=== PATIENT | female | born 1945 | race Caucasian/White ===

== ENCOUNTER 2024-02-18 11:28 | Emergency (ER) | payer OTHER, SELFPAY ==
[2024-02-18 11:39] VITALS: BP 196/77; BMI 23.5
[2024-02-18 12:00] VITALS: BP 197/71
--- NOTE | 2024-02-18 12:00 | EDRN ---
Pt placed on bedpan after saturated depends removed from pt.
[2024-02-18 13:05] VITALS: BP 184/71
--- NOTE | 2024-02-18 13:24 | EDRN ---
Dr. Ibarra in room w/pt and spouse and daughter.
--- NOTE | 2024-02-18 13:54 | ED.GENMED ---
History of Present Illness
General
Chief Complaint: Fall
Source: patient and family
Exam Limitations: none
Time Seen by Provider: 02/18/24 12:00
Nursing documentation reviewed up to this point in time: agreed with
History of Present Illness
History of Present Illness:
78-year-old female on Eliquis slip and fall tried hanging up some cloths hit the back of her head on the dresser and fell has pain on the dorsum of her right wrist
No headache no nausea vomiting neck pain, unsure of her last tetanus pain in her wrist is moderate
Past History
Past History
ED Past Medical History: Arrthythmia (Paroxysmal atrial fibrillation), Asthma, CAD, HTN, Hypercholesterolemia and Valvular disease (Aortic valvular disease); Negative CHF
ED Past Surgical History: Cholecystectomy and Gynecological (Hysterectomy)
Social History
Tobacco: Non-smoker
Alcohol: Occasional
Drug: None
Personal:
Living: with family
Employment: Retired
Family History
Family History: Other (Noncontributory)
Review of Systems
Review of Systems
All Other Systems: Not applicable
Constitutional: Denies fever
EENT: Reports no symptoms
Respiratory: Reports no symptoms; Denies cough or trouble breathing
Cardiac: Denies chest pain or palpitations
: Reports no symptoms
Musculoskeletal: Reports joint pain
Skin: Reports no symptoms
Neurological: Reports no symptoms
Phy Exam
Physical Exam
Physical Exam:
Physical Exam
General: 78-year-old female nontoxic
Neck: No tongue bite no posterior neck pain 0.5 cm abrasion to right posterior scalp
Heart: Regular
Lungs: no acute respiratory distress. clear bilaterally
Abdomen: Nontender
Neuro: alert and oriented. no focal neurological deficits
Skin: no rash
Psychiatric: cooperative
Extremities: Ecchymosis on the dorsum of the right wrist strong radial pulse
Course
Orders/Labs/Results
Orders:
Orders
02/18/24 11:36
CT Cervical Spine W/o Iv Contr Urgent
Comment:
Reason For Exam: fall
CT Head W/o Iv Contrast Urgent
Comment:
Reason For Exam: fall
Cardiac Monitoring- Treatment ONCE
02/18/24 12:00
Wrist, Right 3 Views [CR Wrist - Right Min 3 Views] Urgent
Comment:
Reason For Exam: fall
02/18/24 13:27
Ice Pack-Treatment DIRECTED
Location: wrist
Buzz Wrap Right-Treatment ONCE
Acetaminophen [Tylenol] 650 mg PO NOW STA
Tetanus/Diphth/Acelpertussis [Adacel] 0.5 ml IM .ONCE ONE
Vital Signs
Initial and Last Documented VS:
Initial Vital Signs
Temp Pulse Resp BP Pulse Ox
98.2 F 55 16 196/77 96
02/18/24 11:39 02/18/24 11:39 02/18/24 11:39 02/18/24 11:39 02/18/24 11:39
Last Documented Vital Signs
Temp Pulse Resp BP Pulse Ox
98.2 F 55 24 184/71 96
02/18/24 11:39 02/18/24 13:15 02/18/24 13:15 02/18/24 13:05 02/18/24 13:15
MDM/Problems Addressed
Differential Diagnosis Includes:
Slip and fall subdural epidural skull fracture wrist fracture abrasion contusion laceration
MDM/Problems Addressed:
Fall wrist pain head trauma
Chronic conditions affecting care: Arrhythmia
Acute Exacerbation and/or Progression of Chronic Illness: Arrhythmia
*Radiology
Radiology exam reviewed: radiology read reviewed
*Pulse Oximetry
Patient hypoxic: no
*Critical Care Note
Total Time (30-74mins, 75-104mins- exclusive of procedures): Not Applicable
Update Note
Update Note:
Update, CT reports noted, x-ray noted formal report noted will mobilize have her follow-up with orthopedics of note patient does not want any sutures to her scalp, will provide local wound care bulky dressing
ED Attending Note
-
Portions of this chart may have been created with voice recognition software.� Occasional wrong word or��sound alike� substitutions may have occurred due to the inherent limitations of voice recognition software.
Discharge Plan
Departure
Patient Disposition: Home (Routine Discharge)
Date of Disposition: 02/18/24
Time of Disposition: 13:57
Patient with high blood pressure during this ER visit?: No
Condition: Good
Covid-19: Not Applicable
Discharge Problem:
Injury of wrist, Head injury
Instructions: Preventing falls in adults, Skin Abrasions (DC), Wound Care (DC), Concussion, Adult (DC), Contusion
Prescriptions:
No Action
multivitamin with folic acid [Tab-A-Denisha] 1 TABLET tablet
1 tab PO DAILY Qty: 0
Eliquis 5 MG tablet
5 mg PO BID Qty: 0
acetaminophen [Tylenol Extra Strength] 500 MG tablet
1,000 mg PO TIDPRN PRN (Reason: mild pain)
furosemide 40 mg Tablet
40 mg PO Q48H
aspirin 81 mg Tablet,Delayed Release (Dr/Ec)
81 mg PO DAILY@1200
calcium carbonate 600 mg calcium (1,500 mg) Tablet
600 mg PO DAILY@1200
losartan 100 mg Tablet
100 mg PO DAILY@1200
rosuvastatin 40 mg tablet
40 mg PO DAILY@1200
budesonide-formoterol 160-4.5 mcg/actuation Hfa Aerosol Inhaler
2 puff INHALATION R DAILY
metoprolol succinate 50 mg Tablet Extended Release 24 Hr
75 mg PO BID 30 Days Qty: 90 0RF
zolpidem 10 mg Tablet
5 mg PO HS 30 Days Qty: 15 0RF
Referrals:
Jamaal Jeong, [Family Provider] - Next open appointment
Lloyd Villanueva MD [Active] - Follow up in 5-7 days
Activity Restrictions/Additional Instructions:
Rest, ice there is that hurt, Tylenol as needed for pain,
Use Buzz wrap, follow-up with orthopedics Dr. Villanueva or his associates
No Eliquis this evening, you can resume it tomorrow return to the ER if headaches nausea vomiting weakness seizures or any other concerns as this could be signs of delayed bleeding
Interventions
Interventions:
*Risk Screen - Suicide Last Done: 02/18/24 11:35
*General Assessment Last Done: 02/18/24 11:39
*Neglect/Abuse Screening Last Done: 02/18/24 11:35
ED- Fall Risk Assessment Last Done: 02/18/24 11:35
*ED COVID-19 Vaccine History Last Done: 02/18/24 11:46
ED-Musculoskeletal Assessment Last Done: 02/18/24 12:00
ED- Neurological Assessment Last Done: 02/18/24 12:00
ED-Skin Assessment Last Done: 02/18/24 12:00
Discharge Date and Time
Print Language: CHINESE
[2024-02-18] MEDS: TYLENOL 650 MG PO (14:19)
[2024-02-18] MEDS: ADACEL 0.5 ML IM (14:20)
[2024-02-18 14:25] VITALS: BP 182/67
--- NOTE | 2024-02-18 14:30 | EDRN ---
Per Dr. Ibarra pt declined any sutures to her head. Wound was cleansed extensively on arrival to ER w/ soap and water w/ rinse w/ saline. At this time area was again extensively washed as hair still matted w/ blood. Pt's head abrasion was then
dressed w/ double antibiotic ointment, ABD, and 4x4 gauze squares and held in place w/ kerlix. Pt's R wrist was splinted w/ a volar splint and sling placed on pt.
== END 2024-02-18 15:10 | disposition home or self-care (01) ==
LOC: EMR 11:28
PROVIDERS: EMERGENCY PHYSICIAN Emergency Medicine; FAMILY PHYSICIAN Family Medicine
DX: S09.90XA Unspecified injury of head, initial encounter (principal); S69.91XA Unspecified injury of right wrist, hand and finger(s), initial encounter; S00.01XA Abrasion of scalp, initial encounter; S60.211A Contusion of right wrist, initial encounter; W01.190A Fall on same level from slipping, tripping and stumbling with subsequent striking against furniture, initial encounter; Y93.89 Activity, other specified; Z23 Encounter for immunization; I48.0 Paroxysmal atrial fibrillation; I25.10 Atherosclerotic heart disease of native coronary artery without angina pectoris; I10 Essential (primary) hypertension; J45.909 Unspecified asthma, uncomplicated; E78.00 Pure hypercholesterolemia, unspecified; Z95.2 Presence of prosthetic heart valve; Z90.49 Acquired absence of other specified parts of digestive tract; Z79.01 Long term (current) use of anticoagulants
CPT/HCPCS: 99284; 90471; 29125; 70450; 72125; 73110; 90715

== ENCOUNTER 2024-04-15 22:59 | Observation (INO) | payer OTHER, SELFPAY ==
[2024-04-15 18:12] VITALS: BP 145/81
[2024-04-15 20:05] VITALS: BP 195/74
--- NOTE | 2024-04-15 20:23 | ED.MUSCINJ ---
HPI-Injury
General
Chief Complaint: Musculo-Skeletal Complaint
Source: patient
Exam Limitations: none
Time Seen by Provider: 04/15/24 20:02
History of Present Illness-Injury
Initial Injury comments:
78-year-old female on Eliquis and metoprolol presents for evaluation of right ankle pain and swelling starting last evening. 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 She did not fall and hit her head. She has been unable to
ambulate all today secondary to pain. She was incontinent of urine and she smelled of urine on arrival. She typically uses a walker to ambulate. She lives with her
Past History
Past History
ED Past Medical History: Arrthythmia (Paroxysmal atrial fibrillation), Asthma, CAD, HTN, Hypercholesterolemia and Valvular disease (Aortic valvular disease); Negative CHF
ED Past Surgical History: Cholecystectomy and Gynecological (Hysterectomy)
Social History
Tobacco: Non-smoker
Alcohol: Occasional
Drug: None
Personal:
Living: with family
Employment: Retired
Family History
Family History: Other (Noncontributory)
Phy Exam
Physical Exam
Physical Exam:
General: Well-appearing female no acute respiratory distress
HEENT: Normocephalic atraumatic
Heart: Regular rate and rhythm no murmurs
Lungs: Clear no wheeze
Abdomen is soft nontender nondistended
Musculoskeletal exam: Right ankle swollen ecchymotic and tender mainly over the lateral aspect of the ankle. No deformity. The knee is nontender. She has good range of motion to the ankle.
Vascular: 2+ DP pulse right foot
Injury Course
Orders/Labs/Results
Orders:
Orders
04/15/24 18:22
CR Ankle - Right Min 3 Views * Urgent
Comment:
Reason For Exam: injury/pain/swelling
04/15/24 20:22
Ortho Boot Right- Treatment ONCE
Short or tall?: Tall
04/15/24 21:17
Urinalysis Reflex To Culture Urgent
04/15/24 21:31
Basic Metabolic Panel Urgent
Complete Blood Count/With Diff Urgent
04/15/24 22:15
Case Management Consult ONCE
Case Management Consult: Discharge Planning
PT Consult [Pt Eval And Treat] Urgent
Activity Level: Ambulate
Abnormal Lab Results
04/15/24
21:31
WBC 10.9 H 10^3/uL
(4.8-10.8)
RBC 4.04 L 10^6/uL
(4.20-5.40)
Hct 36.0 L %
(37.0-47.0)
Abs Immat Gran (auto) 0.1 H 10^3/uL
(0-0.05)
Absolute Neuts (auto) 8.5 H 10^3/uL
(1.4-6.5)
Absolute Monos (auto) 1.1 H 10^3/uL
(0.1-0.6)
Neutrophils % 77.4 H %
(42.2-75.2)
Lymphocytes % 10.9 L %
(20.5-51.1)
Monocytes % 10.1 H %
(1.7-9.3)
BUN 18 H mg/dl
(7-17)
Creatinine 1.2 H mg/dL
(0.6-1.0)
Glucose 106 H mg/dl
(70-99)
04/15/24 21:31
04/15/24 21:31
MDM/Problems Addressed
Differential Diagnosis Includes:
Right ankle pain after twisting injury. Consider sprain versus fracture versus dislocation
No head strike or indication for imaging of her head at this time I personally visualized x-rays of the right ankle which demonstrated nondisplaced distal fibular fracture without any involvement in the mortise of the ankle. Patient was placed in
an orthopedic boot.
*Critical Care Note
Total Time (30-74mins, 75-104mins- exclusive of procedures): Not Applicable
Update Note
Update Note:
Patient was placed in a boot and we had walker in the room for her. Nurse attempted to help her ambulate. She required heavy assistance to get out of bed. She unsafely took several steps but was quite unsteady. Discussed this with family.
Family not comfortable with the care she requires at this point at home. Will keep in hospital for case management and physical therapy involvement
ED Attending Note
-
Portions of this chart may have been created with voice recognition software.� Occasional wrong word or��sound alike� substitutions may have occurred due to the inherent limitations of voice recognition software.
Discharge Plan
Departure
Patient Disposition: Admit
Date of Disposition: 04/15/24
Time of Disposition: 22:19
Admit to: Med/Surg
Presentation/result/management discussed w/ accepting MD/DO: Hospitalist
Discharge Problem:
Fracture of distal end of fibula
Prescriptions:
No Action
multivitamin with folic acid [Tab-A-Denisha] 1 TABLET tablet
1 tab PO DAILY Qty: 0
Eliquis 5 MG tablet
5 mg PO BID Qty: 0
acetaminophen [Tylenol Extra Strength] 500 MG tablet
1,000 mg PO TIDPRN PRN (Reason: mild pain)
furosemide 40 mg Tablet
40 mg PO Q48H
aspirin 81 mg Tablet,Delayed Release (Dr/Ec)
81 mg PO DAILY@1200
calcium carbonate 600 mg calcium (1,500 mg) Tablet
600 mg PO DAILY@1200
losartan 100 mg Tablet
100 mg PO DAILY@1200
rosuvastatin 40 mg tablet
40 mg PO DAILY@1200
budesonide-formoterol 160-4.5 mcg/actuation Hfa Aerosol Inhaler
2 puff INHALATION R DAILY
metoprolol succinate 50 mg Tablet Extended Release 24 Hr
75 mg PO BID 30 Days Qty: 90 0RF
zolpidem 10 mg Tablet
5 mg PO HS 30 Days Qty: 15 0RF
Referrals:
UNKNOWN - PT NOT,INTERVIE[facility] [Family Provider] -
Interventions
Interventions:
*Risk Screen - Suicide Last Done: 04/15/24 18:12
*Neglect/Abuse Screening Last Done: 04/15/24 18:12
*ED COVID-19 Vaccine History Last Done: 04/15/24 18:12
ED-Musculoskeletal Assessment Last Done: 04/15/24 20:28
Discharge Date and Time
Print Language: BULGARIAN
[2024-04-15 20:27] VITALS: BMI 23.2
[2024-04-15 21:39] LABS: % Basophils 0.6 % (0-2); % Eosinophils 0.5 % (0-6); % Immature Granulocytes 0.5 % (0-0.5); % Lymphocytes 10.9 % (20.5-51.1); % Monocytes 10.1 % (1.7-9.3); % Neutrophils 77.4 % (42.2-75.2); Absolute Basophils 0.1 10^3/uL (0-0.2); Absolute Eosinophils 0.1 10^3/uL (0-0.7); Absolute Immature Granulocytes 0.1 10^3/uL (0-0.05); Absolute Lymphocytes 1.2 10^3/uL (1.2-3.4); Absolute Monocytes 1.1 10^3/uL (0.1-0.6); Absolute Neutrophils 8.5 10^3/uL (1.4-6.5); Hemoglobin 12.2 g/dL (12.0-16.0); Mean Corp Hgb Conc. 33.9 g/dL (33.0-37.0); Mean Corpuscular Hgb 30.2 pg (27.0-31.0); Mean Corpuscular Volume 89.1 fL (81.0-99.0); Nucleated Red Blood Cells % 0 %; Platelet Count 250 10^3/uL (130-400); Red Blood Cell Count 4.04 10^6/uL (4.20-5.40); Red Cell Dist. Width 13.2 % (11.5-14.5); White Blood Cell Count 10.9 10^3/uL (4.8-10.8)
[2024-04-15 21:55] LABS: Blood Urea Nitrogen 18 mg/dl (7-17); Calcium 9.3 mg/dl (8.4-10.2); Carbon Dioxide 26 mmol/L (22-30); Chloride 103 mmol/L (98-107); Estimated Creatinine Clearance 31 ml/min; Glucose 106 mg/dl (70-99); Sodium 138 mmol/L (135-145); eGFR 46.05
[2024-04-15 23:00] VITALS: BP 167/58
--- NOTE | 2024-04-15 23:03 | HPS.HSE ---
Addendum entered and electronically signed by Nisreen Argueta MD 04/15/24 23:20:
#Urinary incontinence
-UA pending
Original Note:
Family Physician
-
Family Physician: [facility] UNKNOWN - PT NOT
Chief Complaint
-
right ankle pain
History of Present Illness
78-year-old female past medical history of paroxysmal atrial fibrillation on Eliquis, aortic valve replacement, CAD, asthma, hypertension, hypercholesteremia, presenting for right ankle pain and swelling which started last evening. She bent over to
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 She did not fall or hit her head. She was incontinent of urine smelled of urine on arrival. Uses walker to ambulate.
Medical History
Past Medical History
Past Medical History: Reports Other (paroxysmal atrial fibrillation on Eliquis, aortic valve replacement, CAD, asthma, hypertension, hypercholesteremia)
Past Surgical History: Reports Other (Cholecystectomy and Gynecological (Hysterectomy))
Social History
Tobacco: Non-smoker
Alcohol: None
Drug: None
Family History
Family History: Not pertinent
Allergies / Home Medications
Allergies reflects when Allergies were last updated in [employer].
Home Medications with original date entered in [employer]
Allergy/Medication List:
Allergies
Allergy/AdvReac Type Severity Reaction Status Date / Time
No Known Allergies Allergy Verified 04/15/24 18:20
Home Medications
apixaban 5 mg tablet (Eliquis) 5 mg PO BID Blood clot prevention/tx ##0 10/10/18
multivitamin with folic acid 400 mcg tablet (Tab-A-Denisha) 1 tab PO DAILY Supplement ##0 10/10/18
acetaminophen 500 mg tablet (Tylenol Extra Strength) 1,000 mg PO TIDPRN PRN mild pain 10/12/18
aspirin 81 mg tablet,delayed release 81 mg PO DAILY@1200 Blood clot prevention/tx 04/30/22
budesonide-formoterol HFA 160 mcg-4.5 mcg/actuation aerosol inhaler 2 puff inhalation R DAILY Lung/breathing issues 04/30/22
calcium carbonate 600 mg PO DAILY@1200 Supplement 04/30/22
furosemide 40 mg tablet 40 mg PO Q48H Fluid retention/Swelling 04/30/22
losartan 100 mg tablet 100 mg PO DAILY@1200 Blood pressure 04/30/22
rosuvastatin 40 mg tablet 40 mg PO DAILY@1200 High cholesterol 04/30/22
metoprolol succinate 50 mg tablet,extended release 24 hr 75 mg (1.5 x 50 mg) PO BID 30 days #90 tabs 05/02/22
zolpidem 10 mg tablet 5 mg (1/2 x 10 mg) PO HS 30 days #15 tabs 05/02/22
Review of Systems
-
History Source: Patient
A 12 point ROS was completed and negative except as noted: Yes
Constitutional: Reports No Symptoms
EENT: Reports No Symptoms
Respiratory: Reports No Symptoms
Cardiac: Reports No Symptoms
Abdomen/GI: Reports No Symptoms
: Reports No Symptoms
Musculoskeletal: Reports No Symptoms
Skin: Reports No Symptoms
Neurological: Reports No Symptoms
Endocrine: Reports No Symptoms
Hematologic/Lymphatic: Reports No Symptoms
Psych: Reports No Symptoms
Physical Exam
Vital Signs
Vital Signs
Temp Pulse Resp BP Pulse Ox
98.4 F 66 27 195/74 94
04/15/24 18:12 04/15/24 22:19 04/15/24 22:19 04/15/24 20:05 04/15/24 22:19
Physical Exam
General: Well Developed, Well Nourished and No Apparent Distress
HEENT: NormoCephalic, Moist mucous membranes and Atraumatic
Respiratory: Clear
Cardiac: S1/S2 and Regular Rhythm; No Murmur or Rub
GI: Soft, Non Tender, Non Distended and Normal Bowel Sounds; No Organomegaly
Rectal: Deferred by Provider
Musculoskeletal: No Clubbing, No Cyanosis and No Edema
Skin: No Rash
Neuro: Nonfocal/grossly intact
Laboratory Results
-
04/15/24 21:31
04/15/24 21:31
Laboratory Results
Total Bilirubin Cancelled 04/15/24 21:31
AST Cancelled 04/15/24 21:31
ALT Cancelled 04/15/24 21:31
Alkaline Phosphatase Cancelled 04/15/24 21:31
Data Reviewed
-
Lab Data: Labs Reviewed by me
Old Records: Reviewed
Impression/Plan
-
IMPRESSION:
PLAN:
# Right ankle fracture
-X-ray shows a Gonzalez type A ankle fracture, nondisplaced distal fibular fracture
-Orthopedic boot placed
-PT/OT, case management
-Tylenol, tramadol for pain
Paroxysmal atrial fibrillation
-Continue metoprolol
-Continue losartan
-Continue Eliquis
Aortic valve replacement
CAD
-Continue aspirin
Essential hypertension
Asthma
Hypercholesterolemia
-Continue statin
Lower extremity edema
-Continue Lasix
Full code
DVT prophylaxis�Eliquis
Regular diet
[2024-04-16] VITALS (7 sets, daily range): BP systolic 138–198; BP diastolic 54–84; PULSE 70
[2024-04-16] MEDS: LASIX 40 MG PO (01:15)
[2024-04-16] MEDS: TYLENOL 650 MG PO ×2 (01:21→09:51)
[2024-04-16 05:26] LABS: Hematocrit 32.9 % (37.0-47.0); Hemoglobin 11.3 g/dL (12.0-16.0); Mean Corp Hgb Conc. 34.3 g/dL (33.0-37.0); Mean Corpuscular Hgb 30.5 pg (27.0-31.0); Mean Corpuscular Volume 88.7 fL (81.0-99.0); Mean Platelet Volume 10.6 fL (7.4-10.4); Platelet Count 239 10^3/uL (130-400); Red Blood Cell Count 3.71 10^6/uL (4.20-5.40); Red Cell Dist. Width 13.2 % (11.5-14.5); White Blood Cell Count 11.2 10^3/uL (4.8-10.8)
[2024-04-16 05:52] LABS: Blood Urea Nitrogen 17 mg/dl (7-17); Calcium 9.2 mg/dl (8.4-10.2); Carbon Dioxide 25 mmol/L (22-30); Chloride 104 mmol/L (98-107); Estimated Creatinine Clearance 31 ml/min; Glucose 96 mg/dl (70-99); Potassium 3.3 mmol/L (3.5-5.1); Sodium 140 mmol/L (135-145); eGFR 46.05
--- NOTE | 2024-04-16 06:27 | PTCARENOTE ---
2350-pt rec'd from ER, aaox3 able to make needs known, right ortho boot (tall) in place, pt expressed pain 5/10, pt assessed and oriented to unit.
[2024-04-16] MEDS: SYMBICORT 160/4.5 MCG INHALER 2 PUFF INH (07:37)
[2024-04-16] MEDS: THERAGRAN 1 TABLET PO (09:51)
[2024-04-16] MEDS: ELIQUIS 5 MG PO (09:51)
[2024-04-16] MEDS: TOPROL XL 75 MG PO (09:52)
--- NOTE | 2024-04-16 10:02 | W.PN.HOSP.TC ---
Today's Communication/Plan
-
Await PT OT eval. Depending we will discharge home.
Assessment / Plan
Assessment / Plan
# Right Distal fibular fracture-Nontraumatic.
-X-ray shows a Gnozalez type A ankle fracture, nondisplaced distal fibular fracture
-Orthopedic boot placed
-PT/OT, case management
-Tylenol, tramadol for pain
- No signs of ankle instability.
- Follow up Xray in 2 weeks.Follow up with PCP after DC.
Paroxysmal atrial fibrillation
-Continue metoprolol
-Continue losartan
-Continue Eliquis
Aortic valve replacement
CAD
-Continue aspirin
chronic kidney disease-stage III. Creatinine at baseline.
Essential hypertension
Asthma
Hypercholesterolemia
-Continue statin
Lower extremity edema
-Continue Lasix
Full code
DVT prophylaxis�Eliquis
Regular diet
Anticipated Discharge: Today
Subjective/Interval History
-
Date of Service: April 16, 2024
Patient was in her usual state of health unfortunately had a twisting ankle injury without a fall yesterday.
Complains of right lateral foot pain but otherwise okay. She is able to move the ankle up and down but limited because of pain. Denies any numbness.
Objective Data
-
Labs:
Laboratory Results
04/16/24
04:26
WBC 11.2 H
Hgb 11.3 L
Hct 32.9 L
Plt Count 239
Sodium 140
Potassium 3.3 L
Chloride 104
Carbon Dioxide 25
BUN 17
Creatinine 1.2 H
Glucose 96
Calcium 9.2
Vital Signs:
Vital Signs
Temp Pulse Resp BP Pulse Ox
97.8 F 56 12 168/65 96
04/16/24 07:56 04/16/24 07:56 04/16/24 07:56 04/16/24 07:56 04/16/24 07:56
I&O
04/15/24 04/16/24 04/17/24
06:59 06:59 06:59
Intake Total 720 / 720
Output Total 800 / 800
Balance -80 / -80
Review of Systems
-
Respiratory: Denies Trouble Breathing
Cardiac: Denies Chest Pain or Palpitations
Abdomen/GI: Denies Abdominal Pain, Nausea or Vomiting
Musculoskeletal: Reports Joint Pain
Neuro: Denies Dizzy
Physical Exam
-
General: Comfortable
Respiratory: Non Labored Respirations; Negative Accessory Resp Muscle Use
Cardiac: Regular Rhythm and S1/S2
GI: Soft
Musculoskeletal: Other ( Right ankle with slight swelling and bruise in the lateral malleolus which is the most tender spot. No swelling or tenderness over the medial malleolus. Able to move right ankle into flexion and extension easily. Limited
because of pain in the ankle joint. No anterior ankle joint pain.)
Neuro: AO x 3
Psych: Calm; Negative Confused
Data Reviewed
-
Labs: Labs Reviewed by me
[2024-04-16] MEDS: ULTRAM 50 MG PO (10:31)
--- NOTE | 2024-04-16 12:01 | CM ---
Addendum entered by Daniela Valenzuela RN 04/16/24 12:03:
Donnelly letter given.
Original Note:
Cm met with patient and in room. Patient and confirmed demographics. Patient lives with who provides 24 hour care. Patient has had a history of home PT with [facility]. She is currently not on service. Patient does not have
ahistory of SNF Patient is active with her PCP. Patient uses [facility] for medication services.
Patient and stated that they would prefer to go home with home PT. CM advised that PT has yet to evaluate patient and may make a recommendation for SNF. Patient was adamant about returning home.
CM sent referral via [facility] to [facility].
[2024-04-16] MEDS: ASPIR LOW (ENTERIC COATED) 81 MG PO (13:10)
[2024-04-16] MEDS: CRESTOR 40 MG PO (13:10)
[2024-04-16] MEDS: TUMS CHEWABLE TABLET 200 MG PO (13:12)
[2024-04-16] MEDS: COZAAR 100 MG PO (13:12)
--- NOTE | 2024-04-16 15:46 | CM ---
Pt accepted by [facility] for PT/OT
Plan - home with [facility] when medically ready
--- NOTE | 2024-04-16 17:41 | W.DCSUMMARY ---
Discharge Summary
Discharge Data
Date of Admission: 04/15/24
Date of Discharge: 04/16/24
-
Pending Results: No
Hospital Course
Primary diagnosis:
Right distal fibular fracture-after twisting ankle injury but no fall
-X-ray shows a Gonzalez type A ankle fracture, nondisplaced distal fibular fracture
Secondary diagnosis:
Paroxysmal atrial fibrillation not on anticoagulation
Aortic valve placement
Coronary artery disease
Chronic disease stage III
Essential hypertension
Hyperlipidemia
Hospital course:
Patient after setting a twisted right ankle injury came in because of pain and swelling. X-ray showed Gonzalez type a ankle injury with nondisplaced distal fibular fracture. She was admitted for pain management and PT eval. She was put in Ortho boot
and pain was managed with Tylenol and tramadol. She worked with PT and was discharged home with home health. Advised to follow-up x-ray in 2 weeks with PCP.
Discharge Plan
-
Patient Disposition: Home with Home Care
Discharge Diagnosis/Procedures: Gonzalez type A right distal fibular fracture after twisting ankle injury
Diet: Low Cholesterol
Activity: As tolerated
Driving Restrictions: Not until seen by your Dr
Others Tests: Xray of right ankle in 2 weeks -obtain through your PCP
Other Services: PT and OT
Referrals:
UNKNOWN - PT NOT,INTERVIEWE [Family Provider] - in less than 1 week
Prescriptions:
New
tramadol 50 mg Tablet
50 mg PO Q6HPRN PRN (Reason: moderate pain) Qty: 28 0RF
polyethylene glycol 3350 [Miralax] 17 gram powder in packet
17 g PO DAILY PRN (Reason: Constipation) Qty: 14 0RF
Rx Instructions:
if no BM in 2 days
Continued
multivitamin with folic acid [Tab-A-Denisha] 1 TABLET tablet
1 tab PO DAILY Qty: 0
Eliquis 5 MG tablet
5 mg PO BID Qty: 0
acetaminophen [Tylenol Extra Strength] 500 MG tablet
1,000 mg PO TIDPRN PRN (Reason: mild pain)
furosemide 40 mg Tablet
40 mg PO Q48H
aspirin 81 mg Tablet,Delayed Release (Dr/Ec)
81 mg PO DAILY@1200
calcium carbonate 600 mg calcium (1,500 mg) Tablet
600 mg PO DAILY@1200
losartan 100 mg Tablet
100 mg PO DAILY@1200
rosuvastatin 40 mg tablet
40 mg PO DAILY@1200
budesonide-formoterol 160-4.5 mcg/actuation Hfa Aerosol Inhaler
2 puff INHALATION R DAILY
metoprolol succinate 50 mg Tablet Extended Release 24 Hr
75 mg PO BID 30 Days Qty: 90 0RF
zolpidem 10 mg Tablet
5 mg PO HS 30 Days Qty: 15 0RF
Discharge Orders:
Discharge Patient (As Directed); Ordered 04/16/24
Ordered By: Lio Edwards
Discharge Date and Time
Discharge Date/Time: 04/16/24 16:59
Print Language: MACEDONIAN
== END 2024-04-16 16:59 | disposition home health service (06) ==
LOC: 2 SOUTH 22:59
PROVIDERS: Physician Assistant; ADMITTING PHYSICIAN Hospitalist; ATTENDING PHYSICIAN Internal Medicine; EMERGENCY PHYSICIAN Student in an Organized Health Care Education/Training Program
DX: S82.831A Other fracture of upper and lower end of right fibula, initial encounter for closed fracture (principal); X50.1XXA Overexertion from prolonged static or awkward postures, initial encounter; Y93.89 Activity, other specified; Y92.009 Unspecified place in unspecified non-institutional (private) residence as the place of occurrence of the external cause; M25.471 Effusion, right ankle; I12.9 Hypertensive chronic kidney disease with stage 1 through stage 4 chronic kidney disease, or unspecified chronic kidney disease; N18.30 Chronic kidney disease, stage 3 unspecified; R32 Unspecified urinary incontinence; R60.0 Localized edema; I48.0 Paroxysmal atrial fibrillation; J45.909 Unspecified asthma, uncomplicated; I25.10 Atherosclerotic heart disease of native coronary artery without angina pectoris; E78.00 Pure hypercholesterolemia, unspecified; Z90.49 Acquired absence of other specified parts of digestive tract; Z90.710 Acquired absence of both cervix and uterus; Z95.2 Presence of prosthetic heart valve; Z79.01 Long term (current) use of anticoagulants; Z79.82 Long term (current) use of aspirin
CPT/HCPCS: 29515; 73610; 80048; 85025; 85027; 94640; 97163; 97167; 97535; 99285; G0378

== ENCOUNTER 2024-08-25 00:20 | Emergency (ER) | payer OTHER, SELFPAY ==
--- NOTE | 2024-08-25 00:31 | ED.GENMED ---
History of Present Illness
General
Chief Complaint: Fall
Source: patient
Exam Limitations: none
Time Seen by Provider: 08/25/24 00:29
History of Present Illness
History of Present Illness:
See MDM
Past History
Past History
ED Past Medical History: Arrthythmia (Paroxysmal atrial fibrillation), Asthma, CAD, HTN, Hypercholesterolemia and Valvular disease (Aortic valvular disease); Negative CHF
ED Past Surgical History: Cholecystectomy and Gynecological (Hysterectomy)
Social History
Tobacco: Non-smoker
Alcohol: Occasional
Drug: None
Personal:
Living: with family
Employment: Retired
Family History
Family History: Other (Noncontributory)
Phy Exam
Physical Exam
Physical Exam:
See MDM
Course
Orders/Labs/Results
Orders:
Orders
08/25/24 00:29
CT Chest/abd/pel W Iv Cont Urgent
Comment:
Reason For Exam: Trauma, Fall. Chest/abd/flank pain
08/25/24 00:30
CT Cervical Spine W/o Iv Contr Urgent
Comment:
Reason For Exam: fall, neck pain
CT Head W/o Iv Contrast Urgent
Comment:
Reason For Exam: fall, R forehead injury
08/25/24 00:31
Wrist, Right 3 Views [CR Wrist - Right Min 3 Views] Urgent
Comment:
Reason For Exam: fall, R wrist pain
08/25/24 00:39
Type+Screen Urgent
Complete Blood Count/With Diff Urgent
Comprehensive Metabolic Panel Urgent
PTT Urgent
Prothrombin Time Urgent
08/25/24 01:09
ABO2 Urgent
BBK Wristband Number:
Associate notified that ABO2 has been ordered: [id number]
Date: 08/25/24
Time: 00:49
[employer] ID: [id number]
08/25/24 01:20
Prothrombin Complex(Pcc),Human [Kcentra] 1,382.5 unit Empty Viaflex Container 100 ml [Viaflex Empty Container] 0 ml IV NOW
Does patient have a dx of serious acute active bleeding?: Yes
Does patient have prior history of HIT?: No
Abnormal Lab Results
08/25/24
00:39
WBC 11.3 H 10^3/uL
(4.8-10.8)
RBC 2.96 L 10^6/uL
(4.20-5.40)
Hgb 9.3 L g/dL
(12.0-16.0)
Hct 28.1 L %
(37.0-47.0)
MCH 31.4 H pg
(27.0-31.0)
Plt Count 432 H 10^3/uL
(130-400)
Abs Immat Gran (auto) 0.1 H 10^3/uL
(0-0.05)
Absolute Neuts (auto) 7.4 H 10^3/uL
(1.4-6.5)
Absolute Monos (auto) 0.8 H 10^3/uL
(0.1-0.6)
Immature Gran % 0.9 H %
(0-0.5)
PT 22.7 H Sec
(11.4-14.6)
APTT 35.9 H Sec
(23.4-35.0)
BUN 20 H mg/dl
(7-17)
Creatinine 1.4 H mg/dL
(0.6-1.0)
Glucose 125 H mg/dl
(70-99)
AST 75 H U/L
(14-36)
ALT 50 H U/L
(0-35)
Total Protein 5.9 L g/dl
(6.3-8.2)
Albumin 3.1 L g/dl
(3.5-5.0)
08/25/24 00:39
08/25/24 00:39
Vital Signs
Initial and Last Documented VS:
Initial Vital Signs
Pulse Resp BP Pulse Ox
63 22 141/77 95
08/25/24 01:20 08/25/24 01:20 08/25/24 01:20 08/25/24 01:20
Last Documented Vital Signs
Pulse Resp BP Pulse Ox
63 22 141/77 95
08/25/24 01:20 08/25/24 01:20 08/25/24 01:20 08/25/24 01:20
Procedures
Laceration Closure
Right Anterior Lateral Forehead:
Status of Wound: clean
Size of Wound in cm: 3
Description of Wound Edges: sharp
Preparation: cleaned with saline
Anesthesia: 1% Lidocaine with epi
Revision/Debridement: routine- no revision
Wound exploration: explored to base- no FB
Type of Closure: single layer closure
Skin Closure Material: 4-0 nylon
Number of sutures: 5
MDM/Problems Addressed
Differential Diagnosis Includes:
HPI and MDM Narrative:
79-year-old female presenting for evaluation of head injury and uncontrolled bleeding. EMS called prior to arrival indicating a fall and right forehead LAC. They called with concern that they were unable to control the bleeding. They indicated
that they were 7 minutes from [place] yet 20 minutes from the closest trauma center. I did indicate that an 79-year-old female on blood thinners with uncontrolled bleeding from head injury would better be suited at a trauma center. I questioned
them specifically that if they felt that the patient was going to code from blood loss that I would except to [facility] given that this is the closest hospital.
On arrival, the bleeding is controlled. She has a small laceration to her right forehead. No active bleeding when the gauze was removed. With some manipulation, it was clear that there was a small arterial blood. The bleeding appeared to have
been controlled if direct pressure was applied. Regardless, I immediately stitched the forehead after lidocaine and epinephrine was injected. The bleeding was controlled easily
However, patient has evidence of a right wrist fracture. She has bruising to her flank and abdomen. Patient has evidence that she has had multiple falls recently. There is multiple different stages of bruising. Patient is awake and alert and
states she tripped while she was going to the kitchen to make ice cream.
Given the significant blood loss, will obtain hemoglobin testing. Will obtain CT head and neck and CT chest/abdomen/pelvis in addition to right wrist x-ray
Physical exam
General: Mildly uncomfortable. Large amount of dried blood to forehead and right face.
HEENT: protecting airway. 3 cm laceration to right forehead. Active arterial bleeding when manipulated
Neck: supple
CV: No evidence of cyanosis
Resp: No accessory muscle use. Lungs clear
Abd: Non-distended. Mild bruising to lower abdomen
Extremities: Distal right wrist deformity but otherwise neurovascularly intact
Neuro: alert
Psych: Normal affect
Skin: Laceration of right foot
Problems Addressed including Acute and Chronic Conditions affecting care:
1. Uncontrolled bleeding to right forehead laceration
Acuity: acute
Prognosis: unstable
Details: 5 stitches placed immediately on arrival with resolution of bleeding
2. Traumatic fall
Acuity: acute
Prognosis: stable
Details: Will obtain CT head and neck in addition to chest/abdomen/pelvis
Updates
1:15 AM vision radiology called indicating concern for 8 mm right hemispheric subdural bleed
1:20 AM Case discussed with [facility] and accepted by Dr. Binu Prieto. Will give Kcentra
Differential Diagnosis (but not limited to): Laceration, intracranial hemorrhage, wrist fracture, pelvic fracture
Testing considered: Urinalysis
Drug therapy (if applicable): OTC meds, please see d/c instruction regarding Rx drugs
Amount and/or Complexity of Data Reviewed
Clinical info obtained from: Patient
External data reviewed: N/A
Labs I independently reviewed (but not limited to): Anemia
Radiology: The CT scan was personally and independently reviewed. In addition, official CT report reviewed.
Pulse Ox: not hypoxic
EKG independently reviewed: N/A
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
Critical Care: The high probability of a clinically significant, sudden or life threatening deterioration of the neurovascular system(s) required my full and direct attention, intervention and personal management. The aggregate critical care time
was 45 minutes. This time is in addition to time spent performing reported procedures but includes the following:
[x] Data Review and interpretation
[x] Patient assessment and monitoring of vital signs
[x] Documentation
[x] Medication orders and management
Risk of Complication:
Social Determinants of health: Good social support
Discussed with other providers: Radiology, trauma
Escalation of Care includes Admit/Obs: given the traumatic subdural while anticoagulated, will transfer to trauma center
Occasional wrong word or 'sound a like' substitutions may have occurred due to the inherent limitations of voice recognition software. Read the chart carefully and recognize, using context, where substitutions have occurred.
*Critical Care Note
Total Time (30-74mins, 75-104mins- exclusive of procedures): 45 min
ED Attending Note
-
Portions of this chart may have been created with voice recognition software.� Occasional wrong word or��sound alike� substitutions may have occurred due to the inherent limitations of voice recognition software.
Discharge Plan
Departure
Patient Disposition: Acute Care Hospital
Date of Disposition: 08/25/24
Time of Disposition: 01:35
Discharge Problem:
Subdural hematoma, Fracture of wrist
Prescriptions:
No Action
multivitamin with folic acid [Tab-A-Denisha] 1 TABLET tablet
1 tab PO DAILY Qty: 0
Eliquis 5 MG tablet
5 mg PO BID Qty: 0
acetaminophen [Tylenol Extra Strength] 500 MG tablet
1,000 mg PO TIDPRN PRN (Reason: mild pain)
furosemide 40 mg Tablet
40 mg PO Q48H
aspirin 81 mg Tablet,Delayed Release (Dr/Ec)
81 mg PO DAILY@1200
calcium carbonate 600 mg calcium (1,500 mg) Tablet
600 mg PO DAILY@1200
losartan 100 mg Tablet
100 mg PO DAILY@1200
rosuvastatin 40 mg tablet
40 mg PO DAILY@1200
budesonide-formoterol 160-4.5 mcg/actuation Hfa Aerosol Inhaler
2 puff INHALATION R DAILY
metoprolol succinate 50 mg Tablet Extended Release 24 Hr
75 mg PO BID 30 Days Qty: 90 0RF
zolpidem 10 mg Tablet
5 mg PO HS 30 Days Qty: 15 0RF
tramadol 50 mg Tablet
50 mg PO Q6HPRN PRN (Reason: moderate pain) Qty: 28 0RF
polyethylene glycol 3350 [Miralax] 17 gram powder in packet
17 g PO DAILY PRN (Reason: Constipation) Qty: 14 0RF
Rx Instructions:
if no BM in 2 days
Referrals:
UNKNOWN,NO INTERVIEW [Family Provider] -
Hospital Transfer
Other hospital: [facility]
I certify that the patient requires transfer: Yes
Discussed case with accepting physician: Dr. Binu Prieto
Reason for transfer: availability of service and specialties available
Interventions
Interventions:
ED-Musculoskeletal Assessment Last Done: 08/25/24 01:17
ED- Neurological Assessment Last Done: 08/25/24 01:14
ED-Skin Assessment Last Done: 08/25/24 01:18
Discharge Date and Time
Print Language: TAMAZIGHT
[2024-08-25 00:55] LABS: % Basophils 0.8 % (0-2); % Immature Granulocytes 0.9 % (0-0.5); % Lymphocytes 24.3 % (20.5-51.1); % Monocytes 7.2 % (1.7-9.3); % Neutrophils 64.8 % (42.2-75.2); Absolute Basophils 0.1 10^3/uL (0-0.2); Absolute Eosinophils 0.2 10^3/uL (0-0.7); Absolute Immature Granulocytes 0.1 10^3/uL (0-0.05); Absolute Lymphocytes 2.8 10^3/uL (1.2-3.4); Absolute Monocytes 0.8 10^3/uL (0.1-0.6); Absolute Neutrophils 7.4 10^3/uL (1.4-6.5); Hematocrit 28.1 % (37.0-47.0); Hemoglobin 9.3 g/dL (12.0-16.0); Mean Corp Hgb Conc. 33.1 g/dL (33.0-37.0); Mean Corpuscular Hgb 31.4 pg (27.0-31.0); Mean Corpuscular Volume 94.9 fL (81.0-99.0); Mean Platelet Volume 9.1 fL (7.4-10.4); Nucleated Red Blood Cells % 0 %; Platelet Count 432 10^3/uL (130-400); Red Blood Cell Count 2.96 10^6/uL (4.20-5.40); Red Cell Dist. Width 14.1 % (11.5-14.5); White Blood Cell Count 11.3 10^3/uL (4.8-10.8)
[2024-08-25 00:59] LABS: INR 1.94; PT 22.7 Sec (11.4-14.6)
[2024-08-25 01:00] LABS: APTT 35.9 Sec (23.4-35.0)
[2024-08-25 01:17] VITALS: BMI 19.7
[2024-08-25 01:20] VITALS: BP 141/77
[2024-08-25 01:20] LABS: ALT (SGPT) 50 U/L (0-35); AST (SGOT) 75 U/L (14-36); Albumin 3.1 g/dl (3.5-5.0); Alkaline Phosphatase 60 U/L (38-126); Blood Urea Nitrogen 20 mg/dl (7-17); Calcium 8.4 mg/dl (8.4-10.2); Carbon Dioxide 25 mmol/L (22-30); Chloride 105 mmol/L (98-107); Estimated Creatinine Clearance 28 ml/min; Glucose 125 mg/dl (70-99); Potassium 3.8 mmol/L (3.5-5.1); Sodium 136 mmol/L (135-145); Total Bilirubin 0.8 mg/dl (0.2-1.3); Total Protein 5.9 g/dl (6.3-8.2); eGFR 38.03
--- NOTE | 2024-08-25 01:26 | EDRN ---
Pt noted to have multiple, various stages of healing bruises to left hip, left upper arm, generalized neck, left cheek and left eye. reports that pt fell [id number] ago and was not evaluated at that time.
[2024-08-25 01:43] VITALS: BP 128/56
[2024-08-25] MEDS: KCENTRA 60 UNIT IV (02:00)
[2024-08-25 02:06] VITALS: BP 130/60
[2024-08-25] MEDS: MORPHINE SULFATE 4 MG IV (02:26)
== END 2024-08-25 02:48 | disposition short-term general hospital (02) ==
LOC: EMR 00:20
PROVIDERS: EMERGENCY PHYSICIAN Student in an Organized Health Care Education/Training Program
DX: S01.01XA Laceration without foreign body of scalp, initial encounter (principal); S01.81XA Laceration without foreign body of other part of head, initial encounter; S06.5XAA Traumatic subdural hemorrhage with loss of consciousness status unknown, initial encounter; S52.501A Unspecified fracture of the lower end of right radius, initial encounter for closed fracture; S52.611A Displaced fracture of right ulna styloid process, initial encounter for closed fracture; W19.XXXA Unspecified fall, initial encounter; J45.909 Unspecified asthma, uncomplicated; I67.82 Cerebral ischemia; I48.0 Paroxysmal atrial fibrillation; E78.00 Pure hypercholesterolemia, unspecified; I10 Essential (primary) hypertension; I25.10 Atherosclerotic heart disease of native coronary artery without angina pectoris; I34.81 Nonrheumatic mitral (valve) annulus calcification; Z90.49 Acquired absence of other specified parts of digestive tract; Z90.710 Acquired absence of both cervix and uterus; Z95.2 Presence of prosthetic heart valve
CPT/HCPCS: 99291; 12013; 70450; 71260; 72125; 73110; 74177; 80053; 85025; 85610; 85730; 86850; 86900; 86901; J7168; Q9967